=== PATIENT | female | born 1950 | race Caucasian/White ===

== ENCOUNTER 2022-02-14 23:15 | Inpatient (IN) | payer MEDICARE, SELFPAY ==
[2022-02-14 23:16] VITALS: BP 147/99; PULSE 112; RESP 18; TEMP 35.7; O2SAT 96; BMI 29.0
[2022-02-14 23:34] VITALS: RESP 17
--- NOTE | 2022-02-14 23:35 | CON.PCM.GI_ITS ---
HPI Consult Data Date of Consult: 02/15/22 HPI Narrative HPI Narrative: AZ PETER, is a 71-year-old female with no significant past medical history except for diet-controlled diabetes, GERD, history of a hiatal hernia and relapsing remitting multiple sclerosis in remission. Currently on no blood thinners. States she had nausea and vomiting several hours ago. First couple times she threw up it was clear. She then said she had some streaks of blood. She denies any melena. She does not take any blood thinners she denies any recent illness or abdominal pain. She has some epigastric discomfort after vomiting. Denies any fever or chills. No diarrhea. No melena. FOR[facility]LY [facility] Medical History (Updated 02/15/22 @ 02:[address] Melly Mcdonald MD) Anxiety and depression Former tobacco use GERD (gastroesophageal reflux disease) Hiatal hernia History of diabetes mellitus Multiple sclerosis Precancerous changes of the vagina Home Medications aripiprazole 1 mg PO QHS 02/15/22 [History Last Taken Unknown] melatonin 3 mg PO QHS 02/15/22 [History Last Taken Unknown] methylphenidate HCl 18 mg PO DAILY 02/15/22 [History Last Taken Unknown] quetiapine 25 mg PO QHS 02/15/22 [History Last Taken Unknown] trazodone 25 mg PO QHS 02/15/22 [History Last Taken Unknown] venlafaxine 37.5 mg PO DINNER 02/15/22 [History Last Taken Unknown] venlafaxine 75 mg PO DINNER 02/15/22 [History Last Taken Unknown] Allergy/AdvReac Type Severity Reaction Status Date / Time diphenhydramine AdvReac Other Verified 02/14/22 23:19 [From Benadryl] meperidine [From Demerol] AdvReac Other Verified 02/14/22 23:19 Family History (Updated 02/15/22 @ 02:[address] Melly Mcdonald MD) Father Heart disease Hypertension Mother Osteoarthritis Surgical History (Updated 02/15/22 @ 02:[address] Melly Mcdonald MD) H/O rhinoplasty S/P skin cancer resection Social History (Updated 02/15/22 @ 02:[address] Melly Mcdonald MD) household members: family and other details: Living with her son and daughter in law, recently moved to [place]. Smoking Status: Former smoker how long ago did patient quit smoking: Quit 2 years prior, prior to this was intermittent 1 ppd since 22 y/o. alcohol intake: never substance use type: does not use ROS Gastrointestinal Gastrointestinal: Reports hematemesis Physical Exam Const alert General Appearance: cooperative Orientation / Consciousness: oriented to person HEENT hearing grossly normal bilaterally Head and Scalp: normal to inspection Face and Sinus: face symmetric Nose: external nose normal Mouth: oral and palatal mucosa normal Eyes conjunctivae normal General Eye: normal appearance of both eyes Neck full ROM General: normal visual inspection Lymph Lymphatic: no lymphadenopathy noted Chest inspection of chest normal and palpation of chest normal Chest: symmetrical chest wall rise Resp normal respiratory effort Effort and Inspection: able to speak in complete sentences Cardio regular rate GI non-distended Percussion: normal to percussion Rectal Exam: deferred Neuro Speech: speech normal Gait (Neuro): normal gait Lab / Micro Data Result Diagrams: 02/15/22 05:38 02/15/22 02:56 Labs: Laboratory Results - last 24 hr 02/14/22 00:00: WBC 12.5 H, RBC 4.70, Hgb 13.1, Hct 40.6, MCV 86.4, MCH 27.9, MCHC 32.3, RDW Std Deviation 43.2, RDW Coeff of Gabino 13.6, Plt Count 342, MPV 9.9 02/14/22 00:00: Sodium 144, Potassium 3.3 L, Chloride 109 H, Carbon Dioxide 30.0, Anion Gap 5, BUN 19 H, Creatinine 0.97, Estim Creat Clear Calc 49.80, Est GFR (MDRD) Af Amer 73, Est GFR (MDRD) Non-Af 60, BUN/Creatinine Ratio 19.5, Glucose 130 H, Calcium 9.2 02/14/22 23:25: Blood Type O POSITIVE, Antibody Screen NEGATIVE 02/15/22 00:05: Total Bilirubin 0.30, Direct Bilirubin 0.10, AST 27, ALT 24, Alkaline Phosphatase 87, Total Protein 7.5, Albumin 3.7, Globulin 3.8 02/15/22 00:05: Lipase 143 02/15/22 00:05: Magnesium 2.2 02/15/22 02:56: Hgb 12.7, Hct 40.0 02/15/22 02:56: WBC Cancelled, Corrected WBC Cancelled, RBC Cancelled, Hgb Cancelled, Hct Cancelled, MCV Cancelled, MCH Cancelled, MCHC Cancelled, RDW Std Deviation Cancelled, RDW Coeff of Gabino Cancelled, Plt Count Cancelled, MPV Cancelled, Immature Gran % (Auto) Cancelled, Neut % (Auto) Cancelled, Lymph % (A uto) Cancelled, [place] % (Auto) Cancelled, Eos % (Auto) Cancelled, Baso % (Auto) Cancelled, Absolute Neuts (auto) Cancelled, Absolute Lymphs (auto) Cancelled, Total Counted Cancelled, Neutrophils % (Manual) Cancelled, Band Neutrophils % Cancelled, Lymphocytes % (Manual) Cancelled, Monocytes % (Manual) Cancelled, Eosinophils % (Manual) Cancelled, Basophils % (Manual) Cancelled, Metamyelocytes % Cancelled, Myelocytes % Cancelled, Promyelocytes % Cancelled, Blast Cells % Cancelled, Plasma Cell % (Manual) Cancelled, Other Cells % Cancelled, Nucleated RBC % Cancelled, Nucleated RBCs/100 WBC Cancelled, Differential Comment Cancelled, Diff Path Review Cancelled, Hypersegmented Neuts Cancelled, Atypical Lymphocytes Cancelled, Reactive Lymphocytes Cancelled, Smudge Cells Cancelled, Toxic Granulation Cancelled, Toxic Vacuolation Cancelled, Dohle Bodies Cancelled, Efrem Rods Cancelled, Platelet Estimate Cancelled, Plt Morphology Comment Cancelled, RBC Morphology Cancelled, Polychromasia Cancelled, H ypochromasia Cancelled, Poikilocytosis Cancelled, Basophilic Stippling Cancelled, Anisocytosis Cancelled, Microcytosis Cancelled, Macrocytosis Cancelled, Spherocytes Cancelled, Sickle Cells Cancelled, Target Cells Cancelled, Tear Drop Cells Cancelled, Ovalocytes Cancelled, Stomatocytes Cancelled, Alvarado-[place] Bodies Cancelled, Ede Cells Cancelled, Bite Cells Cancelled, Crenated Cell Cancelled, Acanthocytes (Spur) Cancelled, Rouleaux Cancelled, Schistocytes Cancelled 02/15/22 02:56: Sodium 142, Potassium 3.8, Chloride 108 H, Carbon Dioxide 32.0, Anion Gap 2 L, BUN 20 H, Creatinine 0.93, Estim Creat Clear Calc 51.94, Est GFR (MDRD) Af Amer 76, Est GFR (MDRD) Non-Af 63, BUN/Creatinine Ratio 21.4 H, Glucose 175 H, Calcium 8.6, Total Bilirubin 0.30, AST 22, ALT 25, Alkaline Phosphatase 85, Total Protein 7.2, Albumin 3.6, Globulin 3.6, Albumin/Globulin Ratio 1.0 02/15/22 02:56: Hemoglobin A1c 5.8 H 02/15/22 05:38: WBC 9.7, RBC 4.45, Hgb 12.3, Hct 38.7, MCV 87.0, MCH 27.6, MCHC 31.8 L, RDW Std Deviation 43.5, RDW Coeff of Gabino 13.7, Plt Count 310, MPV 9.4, Immature Gran % (Auto) 0.300, Neut % (Auto) 82.4 H, Lymph % (Auto) 13.0 L, [place] % (Auto) 3.6, Eos % (Auto) 0.3, Baso % (Auto) 0.4, Absolute Neuts (auto) 8.0 H, Absolute Lymphs (auto) 1.25, Nucleated RBC % 0 Assessment & Plan Assessment/Plan (1) Acute upper gastrointestinal bleeding: PLAN: The differential diagnosis for upper GI bleed would be Jamila-Mortensen tear, peptic ulcer disease, or esophagitis, portal hypertension, AVM, esophageal web. She should undergo an upper endoscopy evaluate her upper GI tract. She was explained alternatives, risk, benefits including not withstanding bleeding, infection, sepsis, perforation, need for emergent surgery . Have an ASA of 1. Charges/Coding Visit Charges Inpatient E&M: 23560 Init Hosp L2
--- NOTE | 2022-02-14 23:38 | ED.VIS.GI ---
HPI HPI - GI History of Present Illness Chief Complaint: GI Bleed Informant: patient Abdominal Pain/Flank Pain Onset: Today and Hours Context: Gradual Onset Timing: Intermittent Maximum Severity: Mild Worsened by: Nothing Relieved by: Nothing Nausea/Vomiting/Emesis GI Symptom: Positive for Nausea and Vomiting Onset: Today and Hours Associated Symptoms Associated Symptoms: Negative for Dysuria, Frequency, Hematuria and Urgency Narrative Narrative: 71-year-old female history of a hiatal hernia. Currently on no blood thinners. States she had nausea and vomiting several hours ago. First couple times she threw up it was clear. She then said she had some streaks of blood. She denies any melena. She has never had a GI bleed before. She denies any recent illness or abdominal pain. She has some epigastric discomfort after vomiting. Denies any fever or chills. No diarrhea. No melena. Prior similar symptoms: No Recent Illness/Hospitalization: No PFSH PFS Medical History (Updated 02/15/22 @ 01:37 by LIDYA Lundy) Multiple sclerosis Home Medications aripiprazole 1 mg PO QHS 02/15/22 [History Last Taken Unknown] melatonin 3 mg PO QHS 02/15/22 [History Last Taken Unknown] methylphenidate HCl 18 mg PO DAILY 02/15/22 [History Last Taken Unknown] quetiapine 25 mg PO QHS 02/15/22 [History Last Taken Unknown] trazodone 25 mg PO QHS 02/15/22 [History Last Taken Unknown] venlafaxine 37.5 mg PO DINNER 02/15/22 [History Last Taken Unknown] venlafaxine 75 mg PO DINNER 02/15/22 [History Last Taken Unknown] Allergy/AdvReac Type Severity Reaction Status Date / Time diphenhydramine AdvReac Other Verified 02/14/22 23:19 [From Benadryl] meperidine [From Demerol] AdvReac Other Verified 02/14/22 23:19 Surgical History (Updated 02/15/22 @ 01:35 by LIDYA Lundy) H/O rhinoplasty Social History (Updated 02/15/22 @ 01:35 by LIDYA Lundy) Smoking Status: Former smoker alcohol intake: never substance use type: does not use ROS ROS ED ROS Narrative Nausea and vomiting. Review of Systems ROS Unobtainable: Denies due to encephalopathy Constitutional Constitutional ED: Denies fever(s) ENT ENT ED: Denies ear pain Cardiovascular Cardiovascular: Denies chest pain Respiratory/Chest Respiratory/Chest: Denies dyspnea Gastrointestinal Gastrointestinal: Reports abdominal pain, nausea and vomiting; Denies constipation, diarrhea or melena Genitourinary Genitourinary ED: Denies dysuria Musculoskeletal Musculoskeletal: Denies myalgias Integumentary Denies rash Neurologic Neurologic: Denies headache(s) Psychiatric Psychiatric: Denies depression Hematologic/Lymphatic Hematologic/Lymphatic: Denies easy bruising Allergic/Immunologic Allergic/Immunologic ED: Denies urticaria EXAM Physical Exam Narrative Exam Narrative: 71-year-old female. Vital signs stable. Afebrile. H EENT exam unremarkable. Moist extremities. Neck nontender no lymphadenopathy. Lungs clear to auscultation bilaterally. Heart regular rhythm rate about 105 no murmur. Abdomen soft nondistended normal bowel sounds no peritoneal signs. She points to epigastrium but there is no reproducible tenderness. No right upper quadrant tenderness. No distention. Moving all 4 extremities. No edema. Neurologically she is awake and alert. Const Vital Signs: 02/14/22 23:16 02/14/22 23:34 02/15/22 01:34 Temperature 96.2 F L 98.2 F Temperature Source Temporal Temporal Pulse Rate 112 H 111 H Respiratory Rate 18 17 16 Blood Pressure 147/99 H 143/97 H Blood Pressure Mean 115 112 Pulse Ox 96 98 Oxygen Delivery Method Room Air Room Air Positive well nourished and well developed; Negative for obese, cachectic, contractures or unkempt General Appearance ED: well developed and NAD; Negative for unkempt, cachectic, contractures or pallor Nutritional Appearance: Negative for cachectic or obese HEENT Reports moist mucous membranes normocephalic and atraumatic; Negative for trauma or tenderness Eyes PERRL and EOMs intact bilaterally General Eye ED: Negative for pale conjunctiva or scleral icterus Neck no lymphadenopathy, supple and no JVD General: Negative for tenderness Resp normal respiratory effort and clear to auscultation bilaterally Auscultation: Negative for rales, rhonchi or wheezes Cardio regular rhythm, S1 normal heart sound, S2 normal heart sound and no murmurs; Negative for regular rate Rate: tachycardic GI non-tender, non-distended and no masses Auscultation: normoactive bowel sounds Palpation: soft; Negative for tender, guarding, rigid or rebound tenderness present Back/Spine no CVA tenderness General Back: Negative for CVA tenderness Cervical Spine: Negative for cervical spine tenderness Thoracic Spine / Upper Back: Negative for thoracic spinal tenderness Extremity full ROM General Extremety ED: Negative for edema or tenderness General Extremity: Negative for edema Neuro moves all extremities Sensorium / Orientation: alert, oriented to person, oriented to place and oriented to time; Negative for orientation impaired, confused, lethargic or stuporous Motor Exam: strength 5/5 throughout Psych mental status grossly normal and thought process normal Appearance: Negative for unkempt Skin no wounds General Skin Exam: Negative for jaundice or pallor Lesions: no lesions Rashes: no rashes and No rashes noted MDM MDM MDM Narrative Medical decision making narrative: 71-year-old with upper GI bleed that sounds like a Jamila-Mortensen tear. She is on no blood thinners. She threw up several times that had streaks of blood in her emesis. Blood count being obtained. GI cocktail and Protonix and reassessed. Multiple repeat exams patient is doing well. She has had several other episodes of hematemesis while she is here. Each time has not been a large amount. This still could be a Jamila-Mortensen tear but given that she has had recurrent upper GI bleeding I think she needs to be admitted for further evaluation. She was started on Protonix. I will speak to the hospitalist. I have paged the GI physician and Dr. Preston and I spoke around 1:40 AM. The patient does not need an emergent scope at this time. Lab Data Attestation: I reviewed the patient's lab results. Lab results narrative: CBC shows a white count 12.5. H&H of 13.1 and 40. Platelets of 342. Electrolytes show potassium of 3.3 gap of 5 BUN 19 creatinine 0.9. Glucose of 130. Labs: Laboratory Results - last 24 hr 02/14/22 02/14/22 02/15/22 00:00 00:00 00:05 WBC 12.5 H RBC 4.70 Hgb 13.1 Hct 40.6 MCV 86.4 MCH 27.9 MCHC 32.3 RDW Std Deviation 43.2 RDW Coeff of Gabino 13.6 Plt Count 342 MPV 9.9 Sodium 144 Potassium 3.3 L Chloride 109 H Carbon Dioxide 30.0 Anion Gap 5 BUN 19 H Creatinine 0.97 Estim Creat Clear Calc 49.80 Est GFR (MDRD) Af Amer 73 Est GFR (MDRD) Non-Af 60 BUN/Creatinine Ratio 19.5 Glucose 130 H Calcium 9.2 Total Bilirubin 0.30 Direct Bilirubin 0.10 AST 27 ALT 24 Alkaline Phosphatase 87 Total Protein 7.5 Albumin 3.7 Globulin 3.8 Lipase 02/15/22 00:05 WBC RBC Hgb Hct MCV MCH MCHC RDW Std Deviation RDW Coeff of Gabino Plt Count MPV Sodium Potassium Chloride Carbon Dioxide Anion Gap BUN Creatinine Estim Creat Clear Calc Est GFR (MDRD) Af Amer Est GFR (MDRD) Non-Af BUN/Creatinine Ratio Glucose Calcium Total Bilirubin Direct Bilirubin AST ALT Alkaline Phosphatase Total Protein Albumin Globulin Lipase 143 Discharge Plan Dx/Rx/DC Orders Clinical Impression: Acute upper gastrointestinal bleeding, History of diabetes mellitus Disposition Disposition: Acute Care [facility]
[2022-02-15] VITALS (36 sets, daily range): BP systolic 63–155; BP diastolic 35–97; PULSE 44–130; RESP 12–41; TEMP 36.2–38.3; O2SAT 72–100; BMI 26.7; BMI 26.8
[2022-02-15 00:08] LABS: Hematocrit 40.6 % (37-47); Hemoglobin 13.1 g/dL (12.0-15.0); Mean Corp Hgb Conc 32.3 g/dL (32-36); Mean Corpuscular Hgb 27.9 pg (27.0-32.0); Mean Corpuscular Volume 86.4 fL (81-99); Mean Platelet Vol. 9.9 fl (6.2-12.0); Platelet Count 342 K/mm3 (150-450); RBC Distribution Width CV 13.6 % (11.6-14.6); RBC Distribution Width SD 43.2 fl (35.1-43.9); White Blood Count 12.5 K/mm3 (4.4-11.0)
[2022-02-15 00:24] LABS: Anion Gap 5 (5-15); BUN 19 mg/dL (7-18); BUN/Creat Ratio 19.5 RATIO (10-20); Calcium,Total 9.2 mg/dL (8.5-10.1); Chloride 109 mmol/L (98-107); Creatinine, Serum 0.97 mg/dL (0.55-1.02); EST Glomerular Filtration Rate 60 mL/min (>60); Est Glom Filt Rate - Afr Amer 73 mL/min (>60); Glucose 130 mg/dL (74-106); Potassium 3.3 mmol/L (3.5-5.1); Sodium Level 144 mmol/L (136-145)
[2022-02-15] MEDS: Ondansetron 4 MG/2 ML Vial IV (00:46)
[2022-02-15] MEDS: Mag Hydrox/Al Hydrox/Simeth 30 ML UDC PO (00:50)
--- NOTE | 2022-02-15 01:24 | PCM.HP.STD ---
Documented by User: LIDYA Lundy 02/15/22 01:52 HPI - General General Date of Admission: 02/15/22 Date of Service: 02/15/22 Chief Complaint: GI bleed HPI Narrative AZ PETER, is a 71 F who presents with complaints of nausea and vomiting which started on 02/14/2022 approximately 1999. Patient states that after the first few time she vomited she noticed that there was blood in her vomit and came to the ER. Patient has had multiple emesis in ER but are noted to have blood. Upon review labs obtained in the ER are stable at this time. Patient states that she has not been feeling ill and this was a very sudden onset. Patient is not noted to be febrile but states she has had some abdominal pain following vomiting. Patient reports a medical history that includes anxiety and depression, hiatal hernia, MS. FORMERLY [facility] Medical History (Updated 02/15/22 @ 02:[address] Melly Mcdonald MD) Anxiety and depression Former tobacco use GERD (gastroesophageal reflux disease) Hiatal hernia History of diabetes mellitus Multiple sclerosis Precancerous changes of the vagina Home Medications aripiprazole 1 mg PO QHS 02/15/22 [History Last Taken Unknown] melatonin 3 mg PO QHS 02/15/22 [History Last Taken Unknown] methylphenidate HCl 18 mg PO DAILY 02/15/22 [History Last Taken Unknown] quetiapine 25 mg PO QHS 02/15/22 [History Last Taken Unknown] trazodone 25 mg PO QHS 02/15/22 [History Last Taken Unknown] venlafaxine 37.5 mg PO DINNER 02/15/22 [History Last Taken Unknown] venlafaxine 75 mg PO DINNER 02/15/22 [History Last Taken Unknown] Allergy/AdvReac Type Severity Reaction Status Date / Time diphenhydramine AdvReac Other Verified 02/14/22 23:19 [From Benadryl] meperidine [From Demerol] AdvReac Other Verified 02/14/22 23:19 Family History (Updated 02/15/22 @ 02:[address] Melly Mcdonald MD) Father Heart disease Hypertension Mother Osteoarthritis Surgical History (Updated 02/15/22 @ 02:[address] Melly Mcdonald MD) H/O rhinoplasty S/P skin cancer resection Social History (Updated 02/15/22 @ 02:[address] Melly Mcdonald MD) household members: family and other details: Living with her son and daughter in law, recently moved to [place]. Smoking Status: Former smoker how long ago did patient quit smoking: Quit 2 years prior, prior to this was intermittent 1 ppd since 22 y/o. alcohol intake: never substance use type: does not use ROS Constitutional Constitutional: Reports fever(s) and malaise; Denies anorexia, chills, fatigue or weakness Cardiovascular Cardiovascular: Denies chest pain, edema, palpitations or syncope Respiratory/Chest Respiratory/Chest: Denies cough, shortness of breath at rest, shortness of breath with exertion or wheezing Gastrointestinal Gastrointestinal: Reports diarrhea, hematemesis, nausea and vomiting; Denies abdominal pain or constipation Genitourinary Genitourinary: Denies dysuria Musculoskeletal Musculoskeletal: Denies back pain, extremity pain, joint pain or joint stiffness Integumentary Integumentary: Denies dry skin Neurologic Neurologic: Denies abnormal gait Psychiatric Psychiatric: Reports anxiety and depression Endocrine Endocrinology: Denies change in body appearance Hematologic/Lymphatic Hematologic/Lymphatic: Reports anemia Vital Signs Vital Signs Vital Signs: 02/14/22 23:16 02/14/22 23:34 Temperature 96.2 F L Temperature Source Temporal Pulse Rate 112 H Respiratory Rate 18 17 Blood Pressure 147/99 H Blood Pressure Mean 115 Pulse Ox 96 Oxygen Delivery Method Room Air Weight Weight: 180 lb Body Mass Index (BMI) 29.0 Physical Exam Const alert, oriented x3 and no apparent distress General Appearance: cooperative HEENT normocephalic and head/scalp atraumatic Eyes conjunctivae normal and no scleral icterus Neck supple General: trachea midline Lymph Lymphatic: no lymphadenopathy noted Resp normal respiratory effort, normal air movement and clear to auscultation bilaterally Cardio regular rate, regular rhythm, S1 normal heart sound, S2 normal heart sound and peripheral pulses 2+ throughout Rate: tachycardic GI soft to palpation GI Narrative: Patient reports emesis immediately prior to physical exam Auscultation: hyperactive bowel sounds Palpation: tender Extremity normal capillary refill and no clubbing, cyanosis or edema General Extremity: no tenderness to palpation of joints or extremities Skin General Skin Exam: no breakdown and turgor normal Lesions: no lesions Rashes: no rashes Neuro no focal motor deficits and no sensory deficits noted Speech: speech normal Motor Exam: Negative for general weakness Psych Mood & Affect: flat affect Results Lab / Micro Data Result Diagrams: 02/14/22 00:00 02/14/22 00:00 Labs: Laboratory Results - last 24 hr 02/14/22 00:00: WBC 12.5 H, RBC 4.70, Hgb 13.1, Hct 40.6, MCV 86.4, MCH 27.9, MCHC 32.3, RDW Std Deviation 43.2, RDW Coeff of Gabino 13.6, Plt Count 342, MPV 9.9 02/14/22 00:00: Sodium 144, Potassium 3.3 L, Chloride 109 H, Carbon Dioxide 30.0, Anion Gap 5, BUN 19 H, Creatinine 0.97, Estim Creat Clear Calc 49.80, Est GFR (MDRD) Af Amer 73, Est GFR (MDRD) Non-Af 60, BUN/Creatinine Ratio 19.5, Glucose 130 H, Calcium 9.2 Assessment & Plan Assessment/Plan (1) Acute upper gastrointestinal bleeding: PLAN: 1. Acute upper GI bleed secondary to nausea and vomiting -Admit to PCU for cardiac monitoring -Vital signs per protocol, currently stable -Consult GI. discussed with patient possibility of needing a EGD or other testing. Patient verbalizes concern due to being super sensitive to sedating medications as this has been an issue for her in the past. -N.p.o. except for sips of water with medications -CBC, CMP, hemoglobin A1c for a.m. -We will repeat H&H at 2:30 AM, hemoglobin 13.1 with initial evaluation -IV pantoprazole started -Normal saline 100 mL/h ordered -IV Zofran and Compazine ordered for vomiting -Patient does have a mildly elevated white blood cell count of 12.5, possible viral etiology -Hepatic panel within normal limits -Type and screen pending 2. Hypokalemia -Potassium 3.3 -20 mEq IV potassium replacement ordered -CMP ordered for a.m. -Magnesium pending 3. Anxiety and depression -Continue aripiprazole, quetiapine, venlafaxine, methylphenidate, trazodone DVT prophylaxis-SCDs, due to bleeding no pharmacological prophylaxis ordered This patient was seen by LY LundyC under the supervision of Dr. Mcdonald. 30 minutes spent in clinical coordination of patient's plan of care. Documented by User: Dr. Melly Mcdonald MD 02/15/22 02:08 HPI - General General Date of Admission: 02/15/22 FOR[facility]LY [facility] Medical History (Updated 02/15/22 @ 02:[address] Melly Mcdonald MD) Anxiety and depression Former tobacco use GERD (gastroesophageal reflux disease) Hiatal hernia History of diabetes mellitus Multiple sclerosis Precancerous changes of the vagina Home Medications aripiprazole 1 mg PO QHS 02/15/22 [History Last Taken Unknown] melatonin 3 mg PO QHS 02/15/22 [History Last Taken Unknown] methylphenidate HCl 18 mg PO DAILY 02/15/22 [History Last Taken Unknown] quetiapine 25 mg PO QHS 02/15/22 [History Last Taken Unknown] trazodone 25 mg PO QHS 02/15/22 [History Last Taken Unknown] venlafaxine 37.5 mg PO DINNER 02/15/22 [History Last Taken Unknown] venlafaxine 75 mg PO DINNER 02/15/22 [History Last Taken Unknown] Allergy/AdvReac Type Severity Reaction Status Date / Time diphenhydramine AdvReac Other Verified 02/14/22 23:19 [From Benadryl] meperidine [From Demerol] AdvReac Other Verified 02/14/22 23:19 Family History (Updated 02/15/22 @ 02:[address] Melly Mcdonald MD) Father Heart disease Hypertension Mother Osteoarthritis Surgical History (Updated 02/15/22 @ 02:[address] Melly Mcdonald MD) H/O rhinoplasty S/P skin cancer resection Social History (Updated 02/15/22 @ 02:[address] Melly Mcdonald MD) household members: family and other details: Living with her son and daughter in law, recently moved to [place]. Smoking Status: Former smoker how long ago did patient quit smoking: Quit 2 years prior, prior to this was intermittent 1 ppd since 22 y/o. alcohol intake: never substance use type: does not use Results Lab / Micro Data Result Diagrams: 02/14/22 00:00 02/14/22 00:00
[2022-02-15] MEDS: Morphine 4 MG/ML Syringe IV (01:31)
[2022-02-15 01:32] LABS: Lipase 143 U/L (73-393)
[2022-02-15 01:36] LABS: AST(SGOT) 27 U/L (15-37); Alanine Aminotransfer ALT/SGPT 24 U/L (13-56); Albumin, Serum 3.7 g/dL (3.2-5.0); Alkaline Phosphatase 87 U/L (45-117); Globulin 3.8 g/dL (2.2-4.2); Protein, Total 7.5 g/dL (6.4-8.2)
[2022-02-15 01:49] LABS: Magnesium 2.2 mg/dL (1.6-2.6)
[2022-02-15] MEDS: 0.9% Normal Saline 1,000 ML 100 ML IV ×2 (02:47→11:21)
[2022-02-15 03:13] LABS: Hemoglobin 12.7 g/dL (12.0-15.0)
[2022-02-15] MEDS: Potassium Chloride 10mEq/100mL 10 MEQ/100 ML IV.SOLN. 100 MEQ IV BOLUS ×2 (03:14→04:17)
[2022-02-15 03:34] LABS: AST(SGOT) 22 U/L (15-37); Alanine Aminotransfer ALT/SGPT 25 U/L (13-56); Albumin, Serum 3.6 g/dL (3.2-5.0); Alkaline Phosphatase 85 U/L (45-117); Anion Gap 2 (5-15); BUN 20 mg/dL (7-18); BUN/Creat Ratio 21.4 RATIO (10-20); Calcium,Total 8.6 mg/dL (8.5-10.1); Chloride 108 mmol/L (98-107); Creatinine, Serum 0.93 mg/dL (0.55-1.02); EST Glomerular Filtration Rate 63 mL/min (>60); Est Glom Filt Rate - Afr Amer 76 mL/min (>60); Estimated Creatinine Clearance 51.94 ml/min; Globulin 3.6 g/dL (2.2-4.2); Glucose 175 mg/dL (74-106); Potassium 3.8 mmol/L (3.5-5.1); Protein, Total 7.2 g/dL (6.4-8.2); Sodium Level 142 mmol/L (136-145)
[2022-02-15 05:53] LABS: Absolute Lymphocyte Count 1.25 X10^3/uL (0.83-4.51); Basophil# 0.04 X10^3/uL; Basophil% 0.4 % (0-1); Eosinophil# 0.03 X10^3/uL; Eosinophils% 0.3 % (0-5); Hematocrit 38.7 % (37-47); Hemoglobin 12.3 g/dL (12.0-15.0); Lymphocyte # 1.25 X10^3/ul (0.83-4.51); Mean Corp Hgb Conc 31.8 g/dL (32-36); Mean Corpuscular Hgb 27.6 pg (27.0-32.0); Mean Platelet Vol. 9.4 fl (6.2-12.0); Monocyte# 0.35 X10^3/uL; Monocyte% 3.6 % (0-10); NRBC Flagged by Analyzer 0 % (0-5); Neutrophil # 7.95 X10^3/uL (2.7-7.7); Neutrophil % 82.4 % (47-70); Platelet Count 310 K/mm3 (150-450); RBC Distribution Width CV 13.7 % (11.6-14.6); RBC Distribution Width SD 43.5 fl (35.1-43.9); Red Blood Count 4.45 M/mm3 (4.2-5.4); White Blood Count 9.7 K/mm3 (4.4-11.0)
[2022-02-15 07:52] LABS: Hemoglobin A1c 5.8 % (3.8-5.6)
--- NOTE | 2022-02-15 10:21 | NURSING ---
Report called to nurse Vani for pt to go for EGD at 12:30
--- NOTE | 2022-02-15 13:11 | CHAPLAIN ---
Type of Pastoral Visit _x__ Initial Visit ___ Follow-up Visit ___ On-call Visit ___ General Patient Visit ___ Spiritual Assessment ___ Family Conference ___ Bereavement ___ Rapid Response ___ Code Blue ___ Other (describe below) Pastoral Care Referral From _x__ Patient ___ Family ___ Nurse ___ Physician ___ Electronic Parts Salesperson ___ Continuous Conveyor Screen Drier ___ Other (describe below) Sacrament/Intervention _x__ Active listening ___ Anointing ___ Yarsanism ___ Bereavement ___ Communion _x__ Lucila exploration ___ _x__ Life review _x__ Prayer ___ Reconciliation ___ Sacrament of Sick _x__ Supportive presence ___ Wedding ___ Other (describe below) Pastoral Comments patient is scheduled to have a scope done soon and admits to some anxiety about the same; pt identifies herself as a L[employer] and welcomes the prayers and support of the senior copywriter; pt is new to the community and asks questions about finding a jehovah's witness home; pt has family living in the area for support
--- NOTE | 2022-02-15 13:34 | OP.EGD_ITS ---
Patient Name: Devika Adams Procedure Date: 02/15/2022 12:27 PM Date of : 1950 Age: 71 Procedure: Upper GI endoscopy Indications: Dysphagia Providers: Dariel Preston DO Medicines: See the Anesthesia note for documentation of the administered medications Patient Profile: This is a 71 year old female. Refer to note in patient chart for documentation of history and physical. Patient has symptoms. This is a 71 year old female. Refer to note in patient chart for documentation of history and physical. Patient has symptoms of acute chest pain. The symptoms first began one week ago. Complications: No immediate complications. Procedure: Pre-Anesthesia Assessment: - Prior to the procedure, a History and Physical was performed, and patient medications and allergies were reviewed. The patient is competent. The risks and benefits of the procedure and the sedation options and risks were discussed with the patient. All questions were answered and informed consent was obtained. Patient identification and proposed procedure were verified by the physician in the pre-procedure area. Mental Status Examination: alert and oriented. Airway Examination: normal oropharyngeal airway and neck mobility. Respiratory Examination: clear to auscultation. CV Examination: normal. Prophylactic Antibiotics: The patient does not require prophylactic antibiotics. Prior Anticoagulants: The patient has taken no previous anticoagulant or antiplatelet agents. ASA Grade Assessment: II - A patient with mild systemic disease. After reviewing the risks and benefits, the patient was deemed in satisfactory condition to undergo the procedure. The anesthesia plan was to use moderate sedation / analgesia (conscious sedation). Immediately prior to administration of medications, the patient was re-assessed for adequacy to receive sedatives. The heart rate, respiratory rate, oxygen saturations, blood pressure, adequacy of pulmonary ventilation, and response to care were monitored throughout the procedure. The physical status of the patient was re-assessed after the procedure. After obtaining informed consent, the endoscope was passed under direct vision. Throughout the procedure, the patient's blood pressure, pulse, and oxygen saturations were monitored continuously. The gastroscope was introduced through the mouth, and advanced to the third part of duodenum. The upper GI endoscopy was accomplished without difficulty. The patient tolerated the procedure well. Moderate Sedation: Moderate (conscious) sedation was administered by the endoscopy nurse and supervised by the endoscopist. The patient's oxygen saturation, heart rate, blood pressure and response to care were monitored. Total physician intraservice time was 15 minutes. Scope In: 12:47:00 PM Scope Out: 1:24:24 PM Total Procedure Duration Time 0 hours 37 minutes 24 seconds Findings: Food was found in the upper third of the esophagus and in the middle third of the esophagus. Removal of food was accomplished. A large hiatal hernia was present. A 14 Fr nasogastric tube was placed through the nares into the esophagus. Under endoscopic guidance, the tube was advanced into the stomach. Placement was confirmed by aspiration. Localized moderately friable mucosa with contact bleeding was found in the stomach. The second portion of the duodenum was normal. Impression: - Food in the upper third of the esophagus and in the middle third of the esophagus. Removal was successful. - Large hiatal hernia. - Friable gastric mucosa. - Normal second portion of the duodenum. - Feeding tube placement was successfully performed. Recommendation: - Transfer patient to another hospital. - No aspirin, ibuprofen, naproxen, or other non-steroidal anti-inflammatory drugs for 5 days. Procedure Code(s): --- Professional --- 58210, Esophagogastroduodenoscopy, flexible, transoral; with removal of foreign body(s) 85396, Esophagogastroduodenoscopy, flexible, transoral; with insertion of intraluminal tube or catheter 06899, 59, Moderate sedation services provided by the same physician or other qualified health acute care physical therapist performing the diagnostic or therapeutic service that the sedation supports, requiring the presence of an independent trained observer to assist in the monitoring of the patient's level of consciousness and physiological status; initial 15 minutes of intraservice time, patient age 5 years or older CPT copyright 2017 [employer]. All rights reserved. The codes documented in this report are preliminary and upon poem writer review may be revised to meet current compliance requirements. Dariel Preston DO 02/15/2022 1:34:02 PM This report has been signed electronically. Number of Addenda: 1 Note Initiated On: 02/15/2022 12:27 PM Addendum Number: 1 Addendum Date: 08/09/2022 6:44:17 AM MAC was used as sedation for this procedure. Dariel Preston DO 08/09/2022 6:44:21 AM This report has been signed electronically.
--- NOTE | 2022-02-15 13:34 | OP.CCLET_ITS ---
08/09/2022 Lazaro Barnes Md Re : Upper GI endoscopy procedure for Devika Adams Dear Dr. Barnes This procedure was performed on February. My impressions and recommendations are as follows: Impressions : - Food in the upper third of the esophagus and in the middle third of the esophagus. Removal was successful. - Large hiatal hernia. - Friable gastric mucosa. - Normal second portion of the duodenum. - Feeding tube placement was successfully performed. Recommendations : - Transfer patient to another hospital. - No aspirin, ibuprofen, naproxen, or other non-steroidal anti-inflammatory drugs for 5 days. My findings are described in the full procedure note, which is enclosed. If I can be of further assistance, please feel free to contact me at . Sincerely, Dariel Preston, 02/15/2022 1:34:02 PM This report has been signed electronically.
--- NOTE | 2022-02-15 13:45 | RAD_ITS ---
STUDY: X-RAY CHEST REASON FOR EXAM: Female, 71 years old. CONFIRM NG TUBE PLACEMENT TECHNIQUE: Single AP portable view of the chest. COMPARISON: None. FINDINGS: The tip of the NG tube is seen within a large hiatal hernia. EKG electrodes are seen. Mild degree of increased markings in both lungs with findings suggestive of mild vascular congestion. Questionable 2.2 cm x 2 cm nodule in the peripheral aspect of the right upper lobe. There is no demonstrated pleural abnormality. Normal size heart. Normal mediastinum and marilyn. Normal visualized pulmonary arteries. Normal visualized aortic arch and descending thoracic aorta. Normal visualized thoracic spine. Normal visualized ribs, clavicles, and shoulders. Large hiatal hernia. RAD/Chest 1 View (Portable) IMPRESSION: Large hiatal hernia. The tip of the NG tube is seen within the large hiatal hernia. Findings suggest a mild degree of vascular congestion. Questionable 2.2 cm x 2 cm nodule in the peripheral lateral aspect of the right upper lobe. Electronically Signed: Jaquan Goncalves MD at 14:15 EDT ,
--- NOTE | 2022-02-15 14:32 | CASEMGMT ---
ROC KING NOTE: Insurance review for hospitals In-network with [facility] PPO Insurance if transfer is recommended is as follows: [facility], [place], [facility], [facility], [facility], [facility], [place], [facility] ([facility]), and . Lanny YOUNG RN CM
[2022-02-15] MEDS: Ipratropium/Albuterol Sulfate 3 ML AMPUL.NEB INHALATION (14:42)
[2022-02-15] MEDS: Nalbuphine 10 MG/ML Ampul 5 MG IV (14:44)
--- NOTE | 2022-02-15 15:00 | RAD_ITS ---
STUDY: X-RAY CHEST REASON FOR EXAM: Female, 71 years old. QUESTIONABLE DESATURATION. UNABLE TO MAINTAIN OXYGEN TECHNIQUE: Single AP portable view of the chest. COMPARISON: Comparison is made with prior study earlier today at 1:39 PM. FINDINGS: The tip of a nasogastric tube is seen within the large hiatal hernia. Since prior study, there is progressive bilateral alveolar infiltrates suggestive of either progressive CHF versus possible aspiration. Normal size heart. Normal mediastinum and marilyn. Normal visualized pulmonary arteries. There is atherosclerotic calcification of the aortic arch with tortuosity. Normal visualized thoracic spine. Normal visualized ribs, clavicles, and shoulders. There is no demonstrated abnormality of the visualized soft tissue structures of the upper abdomen. RAD/Chest 1 View (Portable) IMPRESSION: Progressive alveolar airspace disease bilaterally as described. This may represent either progressive CHF versus possible aspiration. Persistent large hiatal hernia. Electronically Signed: Jaquan Goncalves MD at 15:26 EDT ,
--- NOTE | 2022-02-15 15:11 | SUR.PHASEI ---
PATIENT IN RESPIRATORY DISTRESS. tHIS NURSE INFORMED ANESTHESIA. ORDERED DUONEB, CHEST XRAY, ABG, CPAP. sEE ORDERS. PATIENT OXYGEN SATURATION 70s. ON CPAP, AFTER 20 MINUTES SATURATIONS IMPROVED TO 90-92%, RESPIRATORY AT BEDSIDE. THIS NURSE PAGED HOSPITALIST.
[2022-02-15 15:16] LABS: Allen Test Positive; Base Excess -3 mmol/L (-2 to +2); Bicarbonate 25.8 mmol/L (22-26); Blood Gas Specimen Type ART; FI02 100; O2 Delivery Device CPAP; PEEP 12; PO2 64 mmHG (75-100); SITE R Radial; SO2 84 % (95-99); Total Carbon Dioxide 28 mmol/L; pCO2 73.9 mmHg (35-45); pH 7.15 (7.35-7.45)
--- NOTE | 2022-02-15 15:24 | NURSING ---
Report called to [facility] for pt transfer to ICU from PACU.
--- NOTE | 2022-02-15 15:37 | SUR.PHASEI ---
VERBAL REPORT CALLED TO [facility]YLE [employer] HE[employer] AGENT
--- NOTE | 2022-02-15 15:41 | EKG12_ITS ---
Test Reason : POST-OP Blood Pressure : / mmHG Vent. Rate : 122 BPM Atrial Rate : 122 BPM P-R Int : 142 ms QRS Dur : 074 ms QT Int : 322 ms P-R-T Axes : 066 008 035 degrees QTc Int : 458 ms Sinus tachycardia Septal infarct , age undetermined Inferior infarct , age undetermined Abnormal ECG No previous ECGs available Confirmed by JAZMÍN MILTON, RUTH ([id number]), editorial project manager MARIA ISABEL HEAD ([id number]) on 02/23/2022 1:32:00 PM Referred By: ADEN Confirmed By:MINDY NOYOLA MD
--- NOTE | 2022-02-15 16:12 | SUR.PHASEI ---
PATIENT TO BE TRANSFERRED TO [facility] PER DR. Menendez D/T CHANGE IN STATUS. DUONEB GIVEN, SEE MAR. BLOOD GAS PERFORMED. SEE DOCUMENTATION. PATIENT STILL STUGGLES TO MAINTAIN O2 ON BIPAP/CPAP WITH RESPIRATORY AT BEDSIDE. KNOWN FAMILY HISTORY IS SENSITIVITIES TO ANESTHESIA/ NARCOTICS. SON UPDATED AND AT BEDSIDE. PATIENT AROUSABLE TO VOICE. A&O4, COURSE CRACKLES/ CONGESTION AUSCULTATED IN BASES. ANESTHESIA WRITTEN NOTE ON ANESTHESIA RECORD IN THE PROCEDURE PATIENT VOMITED. PATIENT PRESENTED TO PACU IN MINIMAL RESPIRATORY DISTRESS WHICH ESCALATED. MASK O2 NOT SUFFICIENT. THIS NURSE INFORMED ANESTHESIA AND RESPIRATORY TO BEDSIDE. CPAP APPLIED TO PATIENT. RESPIRATORY AT BEDSIDE MANAGING CPAP. BLOOD GAS DRAWN. CHEST XRAY PERFORMED. PATIENT TRANSFERRED FROM PACU TO ICU. [ End ]
[2022-02-15 16:16] LABS: Allen Test Positive; Base Excess -3 mmol/L (-2 to +2); Bicarbonate 26.3 mmol/L (22-26); Blood Gas Specimen Type ART; FI02 100; O2 Delivery Device BiPAP; PEEP 12; PO2 58 mmHG (75-100); SITE R Radial; SO2 77 % (95-99); Total Carbon Dioxide 29 mmol/L; Vt 450; pCO2 83.2 mmHg (35-45); pH 7.11 (7.35-7.45)
[2022-02-15] MEDS: Etomidate 20 MG/10 ML Vial IV (16:20)
--- NOTE | 2022-02-15 16:20 | NURSING ---
, 20 mg etomidate ivp, intubated per cps 7.5 tube 23 lip confirmed placement per chest x-ray,
--- NOTE | 2022-02-15 16:24 | RAD_ITS ---
STUDY: X-RAY CHEST REASON FOR EXAM: Female, 71 years old. et tube placement TECHNIQUE: AP COMPARISON: 02/15/2022 FINDINGS: Endotracheal tube present with tip terminating 3.9 cm above the penelope. Esophagogastric tube extends to the stomach (in hiatal hernia). EKG leads project over the chest. Worsening central dominant airspace disease since prior study. No sizable effusion or pneumothorax. Stable size heart. Normal mediastinum and marilyn. Stable visualized pulmonary arteries. There is atherosclerotic calcification of the aortic arch with tortuosity. No acute bony process. Unchanged visualized upper abdomen. RAD/Chest 1 View (Portable) IMPRESSION: 1. Endotracheal tube terminates 3.9 cm above the penelope. 2. Esophagogastric tube extends to stomach in hiatal hernia. 3. Worsening multilobar airspace disease (pneumonia versus edema). Electronically Signed: Klever Lorenzo MD (Brooks) at 16:47 EDT ,
[2022-02-15] MEDS: Propofol 10MG/Ml 1,000 MG/100 ML Bottle 4.5 MG CONT INF (16:25)
--- NOTE | 2022-02-15 16:45 | NURSING ---
belongings given to son, awaiting transfer to [facility], 16 richards cath inserted obtained cloudy alta urine
[2022-02-15 17:01] LABS: Allen Test Positive; Base Excess -6 mmol/L (-2 to +2); Bicarbonate 23.1 mmol/L (22-26); Blood Gas Specimen Type ART; FI02 100; Mode AC; O2 Delivery Device Adult Vent; PEEP 12; PO2 44 mmHG (75-100); RR 14; SITE R Radial; SO2 64 % (95-99); Total Carbon Dioxide 25 mmol/L; Vt 450; pCO2 68.4 mmHg (35-45); pH 7.14 (7.35-7.45)
--- NOTE | 2022-02-15 17:35 | RAD_ITS ---
INDICATION: respiratory failure EXAMINATION/TECHNIQUE: X-RAY - XR Chest 1 View COMPARISON: 02/15/2022. FINDINGS: Stable bilateral patchy airspace opacities. Tortuous and calcified thoracic aorta. The heart is not enlarged. Endotracheal tube is present with tip 6.7 cm above the penelope. NG tube is present with tip in the distal esophagus. No pleural effusion or pneumothorax. The osseous structures are unchanged. RAD/Chest 1 View (Portable) IMPRESSION: Stable exam. NG tube tip is in the distal esophagus. Recommend advancement by at least 10 cm. Electronically Signed: Sharif Cano MD at 18:35 EDT ,
[2022-02-15] MEDS: MethylPREDNISolone 125 MG/2 ML Vial IV (17:45)
[2022-02-15] MEDS: 0.9% Saline Lock 10 ML Syringe IV (17:46)
--- NOTE | 2022-02-15 18:00 | PCM.PROGNOTE ---
Subjective Subjective Patient has not intubated and sedated after having respiratory distress and not being able to saturate with BiPAP. She is also currently febrile at 101. Objective Data Objective Data Vital Signs: Vital Signs Temp Pulse Resp BP Pulse Ox 98 F 99 35 H 135/88 H 94 02/15/22 15:15 02/15/22 16:58 02/15/22 16:58 02/15/22 15:15 02/15/22 16:34 Oxygen Flow Rate (L/min) 6 Oxygen Delivery Method Bi-pap Weight: 166 lb 0.129 oz Body Mass Index (BMI) 26.8 Intake & Output: Intake and Output for Last 24 Hours 02/13/22 02/14/22 02/15/22 23:59 23:59 23:59 Intake Total 1220.00 / 1220.00 Balance 1220.00 / 1220.00 Lab / Micro Data Result Diagrams: 02/15/22 05:38 02/15/22 02:56 Labs: Laboratory Results - last 24 hr 02/14/22 00:00: WBC 12.5 H, RBC 4.70, Hgb 13.1, Hct 40.6, MCV 86.4, MCH 27.9, MCHC 32.3, RDW Std Deviation 43.2, RDW Coeff of Gabino 13.6, Plt Count 342, MPV 9.9 02/14/22 00:00: Sodium 144, Potassium 3.3 L, Chloride 109 H, Carbon Dioxide 30.0, Anion Gap 5, BUN 19 H, Creatinine 0.97, Estim Creat Clear Calc 49.80, Est GFR (MDRD) Af Amer 73, Est GFR (MDRD) Non-Af 60, BUN/Creatinine Ratio 19.5, Glucose 130 H, Calcium 9.2 02/14/22 23:25: Blood Type O POSITIVE, Antibody Screen NEGATIVE 02/15/22 00:05: Total Bilirubin 0.30, Direct Bilirubin 0.10, AST 27, ALT 24, Alkaline Phosphatase 87, Total Protein 7.5, Albumin 3.7, Globulin 3.8 02/15/22 00:05: Lipase 143 02/15/22 00:05: Magnesium 2.2 02/15/22 02:56: Hgb 12.7, Hct 40.0 02/15/22 02:56: WBC Cancelled, Corrected WBC Cancelled, RBC Cancelled, Hgb Cancelled, Hct Cancelled, MCV Cancelled, MCH Cancelled, MCHC Cancelled, RDW Std Deviation Cancelled, RDW Coeff of Gabino Cancelled, Plt Count Cancelled, MPV Cancelled, Immature Gran % (Auto) Cancelled, Neut % (Auto) Cancelled, Lymph % (Auto) Cancelled, [place] % (Auto) Cancelled, Eos % (Auto) Cancelled, Baso % (Auto) Cancelled, Absolute Neuts (auto) Cancelled, Absolute Lymphs (auto) Cancelled, Total Counted Cancelled, Neutrophils % (Manual) Cancelled, Band Neutrophils % Cancelled, Lymphocytes % (Manual) Cancelled, Monocytes % (Manual) Cancelled, Eosinophils % (Manual) Cancelled, Basophils % (Manual) Cancelled, Metamyelocytes % Cancelled, Myelocytes % Cancelled, Promyelocytes % Cancelled, Blast Cells % Cancelled, Plasma Cell % (Manual) Cancelled, Other Cells % Cancelled, Nucleated RBC % Cancelled, Nucleated RBCs/100 WBC Cancelled, Differential Comment Cancelled, Diff Path Review Cancelled, Hypersegmented Neuts Cancelled, Atypical Lymphocytes Cancelled, Reactive Lymphocytes Cancelled, Smudge Cells Cancelled, Toxic Granulation Cancelled, Toxic Vacuolation Cancelled, Dohle Bodies Cancelled, Efrem Rods Cancelled, Platelet Estimate Cancelled, Plt Morphology Comment Cancelled, RBC Morphology Cancelled, Polychromasia Cancelled, Hypochromasia Cancelled, Poikilocytosis Cancelled, Basophilic Stippling Cancelled, Anisocytosis Cancelled, Microcytosis Cancelled, Macrocytosis Cancelled, Spherocytes Cancelled, Sickle Cells Cancelled, Target Cells Cancelled, Tear Drop Cells Cancelled, Ovalocytes Cancelled, Stomatocytes Cancelled, [place] Bodies Cancelled, Ede Cells Cancelled, Bite Cells Cancelled, Crenated Cell Cancelled, Acanthocytes (Spur) Cancelled, Rouleaux Cancelled, Schistocytes Cancelled 02/15/22 02:56: Sodium 142, Potassium 3.8, Chloride 108 H, Carbon Dioxide 32.0, Anion Gap 2 L, BUN 20 H, Creatinine 0.93, Estim Creat Clear Calc 51.94, Est GFR (MDRD) Af Amer 76, Est GFR (MDRD) Non-Af 63, BUN/Creatinine Ratio 21.4 H, Glucose 175 H, Calcium 8.6, Total Bilirubin 0.30, AST 22, ALT 25, Alkaline Phosphatase 85, Total Protein 7.2, Albumin 3.6, Globulin 3.6, Albumin/Globulin Ratio 1.0 02/15/22 02:56: Hemoglobin A1c 5.8 H 02/15/22 05:38: WBC 9.7, RBC 4.45, Hgb 12.3, Hct 38.7, MCV 87.0, MCH 27.6, MCHC 31.8 L, RDW Std Deviation 43.5, RDW Coeff of Gabino 13.7, Plt Count 310, MPV 9.4, Immature Gran % (Auto) 0.300, Neut % (Auto) 82.4 H, Lymph % (Auto) 13.0 L, [place] % (Auto) 3.6, Eos % (Auto) 0.3, Baso % (Auto) 0.4, Absolute Neuts (auto) 8.0 H, Absolute Lymphs (auto) 1.25, Nucleated RBC % 0 ABG Data ABG results: ABG 02/15/22 02/15/22 02/15/22 15:08 16:10 16:54 Specimen Type ART ART ART Sample Site R Radial R Radial R Radial pH 7.15 L* 7.11 L* 7.14 L* Bicarbonate Actual 25.8 26.3 H 23.1 Total CO2 28 29 25 Base Excess -3 L -3 L -6 L O2 Saturation 84 L 77 L 64 L O2 % 100 100 100 ABG pCO2 73.9 H* 83.2 H* 68.4 H* ABG pO2 64 L 58 L 44 L Garret Test Positive Positive Positive Respiration Rate 14 O2 Delivery Device CPAP BiPAP Adult Vent Vent Mode AC Tidal Volume 450 450 POC PEEP 12 12 12 Crit Call To/Read Back Yes Yes Yes Blood Gas Notified Whom ADEN patterson [email or web address] Radiography Diagnostic Testing: Radiology Impression Chest X-Ray 02/15/22 13:45 IMPRESSION: Large hiatal hernia. The tip of the NG tube is seen within the large hiatal hernia. Findings suggest a mild degree of vascular congestion. Questionable 2.2 cm x 2 cm nodule in the peripheral lateral aspect of the right upper lobe. Electronically Signed: Jaquan Goncalves MD at 14:15 EDT , Chest X-Ray 02/15/22 15:00 IMPRESSION: Progressive alveolar airspace disease bilaterally as described. This may represent either progressive CHF versus possible aspiration. Persistent large hiatal hernia. Electronically Signed: Jqauan Goncalves MD at 15:26 EDT , Chest X-Ray 02/15/22 16:24 IMPRESSION: 1. Endotracheal tube terminates 3.9 cm above the penelope. 2. Esophagogastric tube extends to stomach in hiatal hernia. 3. Worsening multilobar airspace disease (pneumonia versus edema). Electronically Signed: Klever Lorenzo MD (Brooks) at 16:47 EDT , Physical Exam Const alert General Appearance: cooperative Orientation / Consciousness: oriented to person HEENT hearing grossly normal bilaterally Head and Scalp: normal to inspection Face and Sinus: face symmetric Nose: external nose normal Mouth: oral and palatal mucosa normal Eyes conjunctivae normal General Eye: normal appearance of both eyes Neck full ROM General: normal visual inspection Lymph Lymphatic: no lymphadenopathy noted Chest inspection of chest normal and palpation of chest normal Chest: symmetrical chest wall rise Resp Resp Narrative: Intubated Effort and Inspection: able to speak in complete sentences Auscultation: rhonchi Cardio regular rate GI non-distended Percussion: normal to percussion Rectal Exam: deferred Neuro Speech: speech normal Gait (Neuro): normal gait Assessment & Plan Assessment/Plan (1) Acute upper gastrointestinal bleeding: PLAN: Upper GI bleed secondary to a large hiatal hernia with possible volvulus formation. NG tube was placed. Consultation was put into surgery however she was deemed too complicated for this institution. Therefore she will be transferred to a level higher care. (2) Respiratory distress: PLAN: She has a very large hiatal hernia and is a possibility of aspiration pneumonia. I wrote for her to have Zosyn and we are waiting for her to get administered. Also wrote for her to get vancomycin. At this time she has a FiO2 of 100 and is saturating at 95%. Her blood pressure is being maintained into the 120s and she is tachycardic. Charges/Coding Visit Charges Inpatient E&M: 61672 Subs Hosp L3
--- NOTE | 2022-02-15 19:05 | EKG12_ITS ---
Test Reason : POST ZACK Blood Pressure : / mmHG Vent. Rate : 134 BPM Atrial Rate : 134 BPM P-R Int : 146 ms QRS Dur : 078 ms QT Int : 386 ms P-R-T Axes : 078 054 056 degrees QTc Int : 576 ms Sinus tachycardia Otherwise normal ECG Confirmed by JAZMÍN MILTON, RUTH ([id number]), editor house organ MARIA ISABEL HEAD ([id number]) on 02/26/2022 2:08:24 PM Referred By: Magui LARSON Confirmed By:MINDY NOYOLA MD
[2022-02-15 19:19] LABS: Absolute Lymphocyte Count 2.97 X10^3/uL (0.83-4.51); Absolute Neutrophil Count 1.1 X10^3/uL (2.0-7.7); Basophil# 0.04 X10^3/uL; Basophil% 0.9 % (0-1); Eosinophil# 0.03 X10^3/uL; Eosinophils% 0.7 % (0-5); Hematocrit 43.3 % (37-47); Hemoglobin 12.6 g/dL (12.0-15.0); Lymphocyte # 2.97 X10^3/ul (0.83-4.51); Lymphocyte % 69.9 % (19-41); Mean Corp Hgb Conc 29.1 g/dL (32-36); Mean Corpuscular Hgb 27.7 pg (27.0-32.0); Mean Corpuscular Volume 95.2 fL (81-99); Mean Platelet Vol. 9.6 fl (6.2-12.0); Monocyte% 2.4 % (0-10); NRBC Flagged by Analyzer 0.9 % (0-5); Neutrophil # 1.09 X10^3/uL (2.7-7.7); Neutrophil % 25.6 % (47-70); POSITIVE MORPHOLOGY YES; Platelet Count 235 K/mm3 (150-450); RBC Distribution Width CV 14.1 % (11.6-14.6); RBC Distribution Width SD 49.4 fl (35.1-43.9); Red Blood Count 4.55 M/mm3 (4.2-5.4); White Blood Count 4.3 K/mm3 (4.4-11.0)
[2022-02-15 19:25] LABS: Allen Test Positive; Base Excess -12 mmol/L (-2 to +2); Bicarbonate 21.2 mmol/L (22-26); Blood Gas Specimen Type ART; FI02 100; Mode AC; O2 Delivery Device ET Tube; PEEP 16; PO2 90 mmHG (75-100); RR 14; SITE R Radial; SO2 85 % (95-99); Total Carbon Dioxide 25 mmol/L; Vt 475; pCO2 118.1 mmHg (35-45); pH 6.86 (7.35-7.45)
--- NOTE | 2022-02-15 19:29 | PCM.HOSP.N ---
Hospitalist Note CODE BLUE NOTE: Patient with planned transfer to tertiary facility secondary to post EGD suspected aspiration with eventual intubation with significant hiatal hernia is filled with food contents per GI request. Upon transitioning patient to transport bed patient immediately bradycardia down with no pulse. This occurred at 1850 with patient administration of epinephrine and initiation of CPR with the following this atropine administered in addition. Patient received an additional epinephrine at 1853 and a rhythm check with shock with 200 J. Discussed with staff and patient had been acidotic therefore patient was administered 2 A of bicarb at 1854 and on repeat rhythm check concern for torsades therefore 1855 patient was administered magnesium 2 g push. At 1856 repeat pulse check with ROSC with patient's rhythm sinus tachycardia with heart rate in the 130s. Patient 1857 administered a 1 L normal saline bolus. CBC, CMP, coags, troponin, mag all requested and EKG which was obtained and noted to be sinus tachycardia with no acute evidence of ischemia. Patient was placed also on a bicarb drip and ABG was obtained with significant acidosis evident. Discussed with transport and patient transition to air transport. Upon air transport arrival and transition to the cot patient did have decreased blood pressure therefore to be cautious patient was also started on norepinephrine. Discussions through the events occurred with family, son present. Patient transitioned to cot and transported to the helicopter pad at 8:23. Critical Care Time: 70 minutes, time from [id number], were spent addressing patients acute presentation with cardiopulmonary arrest, review of all data in collaboration with care team in addition to discussion with family as well as transport. Procedures Hospitalists Procedures: 70498 Critial Care 1st Hr
[2022-02-15 19:32] LABS: Anion Gap 11 (5-15); BUN 21 mg/dL (7-18); BUN/Creat Ratio 13.5 RATIO (10-20); Calcium,Total 7.8 mg/dL (8.5-10.1); Chloride 114 mmol/L (98-107); Creatinine, Serum 1.56 mg/dL (0.55-1.02); EST Glomerular Filtration Rate 35 mL/min (>60); Est Glom Filt Rate - Afr Amer 42 mL/min (>60); Estimated Creatinine Clearance 30.96 ml/min; Glucose 162 mg/dL (74-106); Magnesium 4.6 mg/dL (1.6-2.6); Potassium 3.4 mmol/L (3.5-5.1); Sodium Level 152 mmol/L (136-145)
[2022-02-15 19:33] LABS: CPK Total, Creatine Kinase 108 U/L (26-192); Triglycerides 80 mg/dL
[2022-02-15 19:46] LABS: Troponin-I HS 13 pg/mL (3.0-54.0)
[2022-02-15 19:49] LABS: Differential Indicated SCAN CRITERIA MET
[2022-02-15 19:50] LABS: International Normalized Ratio 1.5; Prothrombin Time (Protime)PT. 17.2 SECONDS (11.7-14.9)
[2022-02-15 19:50] LABS: Differential Comment SCANNED
--- NOTE | 2022-02-15 20:04 | DS.PCM_ITS ---
Providers Date of Admission: 02/15/22 Date of Discharge: 02/15/22 Primary Care Physician: Dr. Lazaro Barnes MD Consultations 02/15/22 02:29 Consult: Gastroenterology Routine Consulting Provider: [facility] Reason for Consult: ? GI bleed, possible MW tear EMERGENT Consult: No MD Notified: Yes Date Notified: 02/15/22 Time Notified: 01:23 Method of Notification: Text Reason For Visit: N/V, ? GI BLEED Diagnosis Discharge Diagnosis (1) Acute upper gastrointestinal bleeding: Status: Acute Code(s): K92.2 - Gastrointestinal hemorrhage, unspecified (2) Respiratory distress: Status: Acute Code(s): R06.03 - Acute respiratory distress Plan: 1. Hematemesis secondary to gastritis #2 acute hypoxic and hypercapnic respiratory failure secondary to aspiration pneumonitis with acute respiratory distress syndrome #3 acute respiratory distress syndrome secondary to aspiration pneumonitis #4 aspiration pneumonitis secondary to large hiatal hernia #5 cardiac arrest-etiology unclear #6 chronic depression/anxiety #7 acute gastritis #8 retained food in the esophagus secondary to large hiatal hernia Medications at Discharge Home Medications aripiprazole 1 mg PO QHS 02/15/22 melatonin 3 mg PO QHS 02/15/22 methylphenidate HCl 18 mg PO DAILY 02/15/22 quetiapine 25 mg PO QHS 02/15/22 trazodone 25 mg PO QHS 02/15/22 venlafaxine 37.5 mg PO DINNER 02/15/22 venlafaxine 75 mg PO DINNER 02/15/22 Hospital Course Operations None Procedures ACLS performed, CPR performed, EGD and Intubation Summary of Care Provided Minutes Spent on Discharge: 55 Hospital Course: 71-year-old white female was seen in the emergency room at [facility] with complaints of nausea and vomiting which started on 02/14/2022, patient also noted after vomiting a few times that there was blood in her vomitus and she came to the ER for evaluation. Work-up in the emergency room included a CBC which was unremarkable, patient's chemistry profile was remarkable for BUN of 20 and a glucose of 175. Patient was placed in observation status on PCU, repeat hemoglobin dropped to 12.3, patient underwent an EGD in the afternoon of 02/15/2022 which showed a large hiatal hernia, friable gastric mucosa, and retained food in the esophagus. This food was suctioned and an NG was inserted, the patient was sent to recovery and I received a phone call from gastroenterology who requested the patient be transferred to a [facility] to evaluate the patient for surgical intervention on the hiatal hernia because of its size. While the patient was in recovery, she vomited and apparently aspirated, her oxygen saturation dropped and she was placed on BiPAP. She was subsequently transferred to ICU where she remained hypoxic and hypercapnic, chest x-ray showed bilateral infiltrates, patient did not stabilize on BiPAP and she had to be intubated, patient's son was present and her medical care was discussed with him. Patient remained hypoxic and hypercapnic for a period of time on the ventilator, adjustments on the ventilator were instituted and patient appeared to stabilize for a time. A bed was secured at [facility] for the patient to be discharged there, just prior to the patient being transferred to a [facility] to go into the ambulance, she suddenly went bradycardic and had a cardiac arrest. CPR was immediately initiated, she was given IV atropine, IV epinephrine, IV magnesium, and IV bicarb, after a short period of time, patient appeared to recover and had return of spontaneous circulation. Arrangements were then made to fly the patient out by helicopter to [facility]. On 02/15/2022, just prior to discharge from the hospital by air ambulance, patient was seen and examined: On examination patient was sedated and on the ventilator. Vital signs as documented. Skin warm and dry and without overt rashes. Neck without JVD, thyroid appears normal, trachea is midline, neck is supple. Lungs clear, normal air movement was noted. Heart exam notable for regular rhythm, normal sounds and absence of murmurs, rubs or gallops. Abdomen unremarkable and without evidence of organomegaly, masses, or abdominal aortic enlargement, bowel sounds are present in all 4 quadrants, no abdominal tenderness was noted. Extremities nonedematous, no cyanosis was noted, no clubbing was noted. Neuro: Patient was sedated and on the ventilator. Psych: Patient was sedated and on the ventilator Patient was stable for discharge on 02/15/22 to [facility] for further care Weight / BMI Weight Weight: 75.3 kg Body Mass Index (BMI) 26.8 ABG / Lab / Microbiology Data Result Diagrams: 02/15/22 19:00 02/15/22 19:00 Laboratory: Laboratory Results - last 24 hr 02/14/22 00:00: WBC 12.5 H, RBC 4.70, Hgb 13.1, Hct 40.6, MCV 86.4, MCH 27.9, MCHC 32.3, RDW Std Deviation 43.2, RDW Coeff of Gabino 13.6, Plt Count 342, MPV 9.9 02/14/22 00:00: Sodium 144, Potassium 3.3 L, Chloride 109 H, Carbon Dioxide 30.0, Anion Gap 5, BUN 19 H, Creatinine 0.97, Estim Creat Clear Calc 49.80, Est GFR (MDRD) Af Amer 73, Est GFR (MDRD) Non-Af 60, BUN/Creatinine Ratio 19.5, Glucose 130 H, Calcium 9.2 02/14/22 23:25: Blood Type O POSITIVE, Antibody Screen NEGATIVE 02/15/22 00:05: Total Bilirubin 0.30, Direct Bilirubin 0.10, AST 27, ALT 24, Alkaline Phosphatase 87, Total Protein 7.5, Albumin 3.7, Globulin 3.8 02/15/22 00:05: Lipase 143 02/15/22 00:05: Magnesium 2.2 02/15/22 02:56: Hgb 12.7, Hct 40.0 02/15/22 02:56: WBC Cancelled, Corrected WBC Cancelled, RBC Cancelled, Hgb Cancelled, Hct Cancelled, MCV Cancelled, MCH Cancelled, MCHC Cancelled, RDW Std Deviation Cancelled, RDW Coeff of [place] Cancelled, Plt Count Cancelled, MPV Cancelled, Immature Gran % (Auto) Cancelled, Neut % (Auto) Cancelled, Lymph % (Auto) Cancelled, [place] % (Auto) Cancelled, Eos % (Auto) Cancelled, Baso % (Auto) Cancelled, Absolute Neuts (auto) Cancelled, Absolute Lymphs (auto) Cancelled, Total Counted Cancelled, Neutrophils % (Manual) Cancelled, Band Neutrophils % Ca ncelled, Lymphocytes % (Manual) Cancelled, Monocytes % (Manual) Cancelled, Eosinophils % (Manual) Cancelled, Basophils % (Manual) Cancelled, Metamyelocytes % Cancelled, Myelocytes % Cancelled, Promyelocytes % Cancelled, Blast Cells % Cancelled, Plasma Cell % (Manual) Cancelled, Other Cells % Cancelled, Nucleated RBC % Cancelled, Nucleated RBCs/100 WBC Cancelled, Differential Comment Cancelled, Diff Path Review Cancelled, Hypersegmented Neuts Cancelled, Atypical Lymphocytes Cancelled, Reactive Lymphocytes Cancelled, Smudge Cells Cancelled, Toxic Granulation Cancelled, Toxic Vacuolation Cancelled, Dohle Bodies Cancelled, Efrem Rods Cancelled, Platelet Estimate Cancelled, Plt Morphology Comment Cancelled, RBC Morphology Cancelled, Polychromasia Cancelled, Hypochromasia Cancelled, Poikilocytosis Cancelled, Basophilic Stippling Cancelled, Anisocytosis Cancelled, Microcytosis Cancelled, Macrocytosis Cancelled, Spherocytes Cancelled, Sickle Cells Cancelled, Target Cells Cancelled, Tear Drop Cells Cancelled, Ovalocytes Cancelled, Stomatocytes Cancelled, Alvarado-Pearland Bodies Cancelled, Ede Cells Cancelled, Bite Cells Cancelled, Crenated Cell Cancelled, Acanthocytes (Spur) Cancelled, Rouleaux Cancelled, Schistocytes Cancelled 02/15/22 02:56: Sodium 142, Potassium 3.8, Chloride 108 H, Carbon Dioxide 32.0, Anion Gap 2 L, BUN 20 H, Creatinine 0.93, Estim Creat Clear Calc 51.94, Est GFR (MDRD) Af Amer 76, Est GFR (MDRD) Non-Af 63, BUN/Creatinine Ratio 21.4 H, Gluc ose 175 H, Calcium 8.6, Total Bilirubin 0.30, AST 22, ALT 25, Alkaline Phosphatase 85, Total Protein 7.2, Albumin 3.6, Globulin 3.6, Albumin/Globulin Ratio 1.0 02/15/22 02:56: Hemoglobin A1c 5.8 H 02/15/22 05:38: WBC 9.7, RBC 4.45, Hgb 12.3, Hct 38.7, MCV 87.0, MCH 27.6, MCHC 31.8 L, RDW Std Deviation 43.5, RDW Coeff of [place] 13.7, Plt Count 310, MPV 9.4, Immature Gran % (Auto) 0.300, Neut % (Auto) 82.4 H, Lymph % (Auto) 13.0 L, [place] % (Auto) 3.6, Eos % (Auto) 0.3, Baso % (Auto) 0.4, Absolute Neuts (auto) 8.0 H, Absolute Lymphs (auto) 1.25, Nucleated RBC % 0 02/15/22 19:00: Total Creatine Kinase 108, Triglycerides 80 02/15/22 19:00: Troponin I High Sens 13 02/15/22 19:00: WBC 4.3 L, RBC 4.55, Hgb 12.6, Hct 43.3, MCV 95.2 D, MCH 27.7, MCHC 29.1 L D, RDW Std Deviation 49.4 H, RDW Coeff of [place] 14.1, Plt Count 235, MPV 9.6, Immature Gran % (Auto) 0.500, Neut % (Auto) 25.6 L, Lymph % (Auto) 69.9 H, [place] % (Auto) 2.4, Eos % (Auto) 0.7, Baso % (Auto) 0.9, Absolute Neuts (auto) 1.1 L, Absolute Lymphs (auto) 2.97, Nucleated RBC % 0.9, Differential Comment SCANNED 02/15/22 19:00: PT Cancelled, INR Cancelled 02/15/22 19:00: Sodium 152 H, Potassium 3.4 L, Chloride 114 H, Carbon Dioxide 27.0, Anion Gap 11, BUN 21 H, Creatinine 1.56 H, Estim Creat Clear Calc 30.96, Est GFR (MDRD) Af Amer 42 L, Est GFR (MDRD) Non-Af 35 L, BUN/Creatinine Ratio 13.5, Glucose 162 H, Calcium 7.8 L, Magnesium 4.6 H 02/15/22 19:30: PT 17.2 H, INR 1.5 Microbiology: Microbiology 02/15/22 17:30 Nasal Secretion SARS-CoV-2 Antigen (Rapid) - Final ABG: ABG 02/15/22 02/15/22 02/15/22 15:08 16:10 16:54 Specimen Type ART ART ART Sample Site R Radial R Radial R Radial pH 7.15 L* 7.11 L* 7.14 L* Bicarbonate Actual 25.8 26.3 H 23.1 Total CO2 28 29 25 Base Excess -3 L -3 L -6 L O2 Saturation 84 L 77 L 64 L O2 % 100 100 100 ABG pCO2 73.9 H* 83.2 H* 68.4 H* ABG pO2 64 L 58 L 44 L Garret Test Positive Positive Positive Respiration Rate 14 O2 Delivery Device CPAP BiPAP Adult Vent Vent Mode AC Tidal Volume 450 450 POC PEEP 12 12 12 Crit Call To/Read Back Yes Yes Yes Blood Gas Notified Whom ADEN [email or web address] 02/15/22 19:13 Specimen Type ART Sample Site R Radial pH 6.86 L* Bicarbonate Actual 21.2 L Total CO2 25 Base Excess -12 L O2 Saturation 85 L O2 % 100 ABG pCO2 118.1 H* ABG pO2 90 Garret Test Positive Respiration Rate 14 O2 Delivery Device ET Tube Vent Mode AC Tidal Volume 475 POC PEEP 16 Crit Call To/Read Back Yes Blood Gas Notified Whom Radiography Diagnostic Testing: Radiology Impression Chest X-Ray 02/15/22 13:45 IMPRESSION: Large hiatal hernia. The tip of the NG tube is seen within the large hiatal hernia. Findings suggest a mild degree of vascular congestion. Questionable 2.2 cm x 2 cm nodule in the peripheral lateral aspect of the right upper lobe. Electronically Signed: Jaquan Goncalves MD at 14:15 EDT , Chest X-Ray 02/15/22 15:00 IMPRESSION: Progressive alveolar airspace disease bilaterally as described. This may represent either progressive CHF versus possible aspiration. Persistent large hiatal hernia. Electronically Signed: Jaquan Goncalves MD at 15:26 EDT , Chest X-Ray 02/15/22 16:24 IMPRESSION: 1. Endotracheal tube terminates 3.9 cm above the penelope. 2. Esophagogastric tube extends to stomach in hiatal hernia. 3. Worsening multilobar airspace disease (pneumonia versus edema). Electronically Signed: Klever Lorenzo MD (Brooks) at 16:47 EDT , Chest X-Ray 02/15/22 17:35 IMPRESSION: Stable exam. NG tube tip is in the distal esophagus. Recommend advancement by at least 10 cm. Electronically Signed: Sharif Cano MD at 18:35 EDT , Meaningful Use Info Meaningful Use Diagnoses (Choose all that apply): None applicable Discharge Plan Admission Admit Date/Time: 02/15/22 15:05 Attending Provider: Jose Aparicio Primary Care Provider: Lazaro Barnes Discharge Orders/Prescriptions Prescriptions: No Action quetiapine 25 mg tablet 25 mg PO QHS RF: 0 venlafaxine 37.5 mg capsule,extended release 24hr 37.5 mg PO DINNER RF: 0 venlafaxine 75 mg tablet 75 mg PO DINNER RF: 0 trazodone 50 mg tablet 25 mg PO QHS RF: 0 melatonin 3 mg tablet 3 mg PO QHS RF: 0 methylphenidate HCl 18 mg tablet extended release 24hr 18 mg PO DAILY RF: 0 aripiprazole 2 mg tablet 1 mg PO QHS RF: 0 Referrals / Follow Up: Lazaro Barnes MD [Primary Care Provider] - Disposition Discharge Orders: Discharge Patient (Routine); Ordered 02/15/22 Ordered By: Dr. Jose Aparicio Charges/Coding Visit Charges OBSV E&M: 53161 Observ/hosp same date L3
--- NOTE | 2022-02-15 20:54 | CM.ED ---
SW Note Referral Source: Sales Development Director Referral Reason: Emotional support SW met with patient's son. Patient was being transferred to [facility] via [facility]. SW provided emotional support to patient. SW remains available if needs arise. Karla ALEXANDER
--- NOTE | 2022-02-15 22:13 | CPS ---
Critical ABG values, Dr. Mcdonald aware.
== END 2022-02-15 20:25 | disposition short-term general hospital (02) | DRG 208 ==
LOC: ED 02-15 01:16 → PCU 02-15 05:38 → ICU 02-15 15:24
PROVIDERS: Internal Medicine Gastroenterology; Admitting Provider Family Medicine; Emergency Provider Emergency Medicine; PCP Family Medicine; Visit Provider Internal Medicine
PROC: 0DJ08ZZ Inspection of Upper Intestinal Tract, Via Natural or Artificial Opening Endoscopic (ICD-10-PCS; CPT 43235; principal; 2022-02-15 12:25)
DX: J80 Acute respiratory distress syndrome (principal); I46.9 Cardiac arrest, cause unspecified; J69.0 Pneumonitis due to inhalation of food and vomit; K56.2 Volvulus; K29.01 Acute gastritis with bleeding; D62 Acute posthemorrhagic anemia; E87.2 Acidosis; F31.9 Bipolar disorder, unspecified; E11.9 Type 2 diabetes mellitus without complications; G35 Multiple sclerosis; K44.9 Diaphragmatic hernia without obstruction or gangrene; F41.9 Anxiety disorder, unspecified; T18.108A Unspecified foreign body in esophagus causing other injury, initial encounter; E87.6 Hypokalemia; R00.1 Bradycardia, unspecified; R03.0 Elevated blood-pressure reading, without diagnosis of hypertension; Z20.822 Contact with and (suspected) exposure to COVID-19; R13.10 Dysphagia, unspecified; Z79.899 Other long term (current) drug therapy; Z87.891 Personal history of nicotine dependence
CPT/HCPCS: 31500; 36415; 36600; 71045; 80048; 80053; 80076; 82550; 82803; 83036; 83690; 83735; 84478; 84484; 85014; 85018; 85025; 85027; 85610; 86850; 86900; 86901; 87426; 92950; 93005; 94002; 94660; 99251; 99284; J7030; A4216; G0463; J2405; J3010; J3475